=== PATIENT | male | born 1945 | race Caucasian/White ===

== ENCOUNTER 2020-01-05 20:45 | Inpatient (IN) ==
[2020-01-05] MEDS ORDERED: Naloxone 0.4 MG/ML INJ IVP PRN (22:56)
[2020-01-05] MEDS: 0.9 % Sodium Chloride 1,000 ML IVC SCH (23:16)
[2020-01-05] MEDS: Acetaminophen 325 MG TABLET PO PRN (23:53)
[2020-01-06] MEDS ORDERED: Ketorolac 15 MG/ML VIAL IVP PRN (01:28)
[2020-01-06 02:35] LABS: Hematocrit 36.5 % (37.5-50.1); Hemoglobin 11.9 g/dL (12.9-16.9); Immature Granulocytes % 0.4 % (0-4); Lymphocytes % 6.1 %; Mean Corpuscular HGB Conc 32.6 g/dL (31.6-35.5); Mean Corpuscular Hemoglobin 29.9 pg (28.0-33.3); Mean Corpuscular Volume 91.7 fL (83.0-100.0); Platelet Count 130 K/mcL (140-400); Red Blood Count 3.98 M/mcL (4.19-5.50); Red Cell Distribution Width 13.1 % (11.5-14.5); Segmented Neutrophils % 85.4 %; White Blood Count 9.7 K/mcL (4.3-11.1)
[2020-01-06 02:36] LABS: Basophils % 0.1 %; Lymphocytes # 0.6 K/mcL (0.6-4.6); Monocytes # 0.8 K/mcL (0.0-1.3); Neutrophils # 8.3 K/mcL (1.6-8.9)
[2020-01-06 02:44] LABS: INR 1.3; Prothrombin Time 14.7 Seconds (9.4-12.1)
[2020-01-06 02:47] LABS: Activated Partial Thrombo Time 28.5 Seconds (26.0-36.0)
[2020-01-06 02:57] LABS: Albumin 3.2 g/dL (3.5-5.7); Albumin/Globulin Ratio 1.6 (1.1-2.2); Bilirubin,Total 0.7 mg/dL (0.3-1.0); Calcium 8.1 mg/dL (8.6-10.3); Potassium 3.2 mEq/L (3.5-5.1); Total Protein 5.2 g/dL (6.4-8.9)
[2020-01-06] MEDS ORDERED: *HR* LORazepam 1 MG TABLET PO ONE (02:57)
[2020-01-06 03:09] LABS: Thyroid Stimulating Hormone 0.266 mcIU/mL (0.340-5.600)
[2020-01-06] MEDS: cefTRIAXone 1,000 MG in 0.9 % Sodium Chloride Mini Bag 100 ML IVPB SCH (08:20)
[2020-01-06] MEDS: atenoloL 50 MG TABLET PO SCH (08:22)
[2020-01-06] MEDS ORDERED: 0.9 % Sodium Chloride 500 ML ONE (09:26)
[2020-01-06] MEDS ORDERED: 0.9 % Sodium Chloride 250 ML ONE (09:28)
[2020-01-06] MEDS: Azithromycin 500 MG in 0.9 % Sodium Chloride 250 ML IVPB SCH (09:30)
[2020-01-06 09:49] LABS: Triiodothyronine (T3) Total 0.43 ng/mL (0.87-1.78)
[2020-01-06 10:58] LABS: Adenovirus Not Detected (Not Detect); Bordetella Pertussis Not Detected (Not Detect); Chlamydophila pneumoniae Not Detected (Not Detect); Coronavirus 229E Not Detected (Not Detect); Coronavirus HKU1 Not Detected (Not Detect); Coronavirus NL63 Not Detected (Not Detect); Coronavirus OC43 Not Detected (Not Detect); Human Metapneumovirus Not Detected (Not Detect); Human Rhinovirus/Enterovirus Not Detected (Not Detect); Influenza A Subtype 2009 H1 Not Detected (Not Detect); Influenza B Not Detected (Not Detect); Mycoplasma pneumoniae Not Detected (Not Detect); Parainfluenza Virus 1 Not Detected (Not Detect); Parainfluenza Virus 2 Not Detected (Not Detect); Parainfluenza Virus 3 Not Detected (Not Detect); Parainfluenza Virus 4 Not Detected (Not Detect); Respiratory Syncytial Virus Not Detected (Not Detect); SARS-CoV-2 Not Detected (Not Detect)
[2020-01-06] MEDS ORDERED: *HR* HYDROcodone/Acet 5/325 mg TABLET PO PRN (11:38)
[2020-01-06] MEDS: 0.9 % Sodium Chloride 1,000 ML IVC SCH (13:30)
[2020-01-06] MEDS: Vancomycin 1,250 MG/262.5 ML IV.SOLN IVPB SCH (14:37)
[2020-01-06] MEDS: Acetaminophen 325 MG TABLET PO PRN ×2 (16:01→23:08)
[2020-01-06] MEDS: *HR* Heparin 5,000 UNIT/ML VIAL SQ SCH (17:19)
[2020-01-06] MEDS: DYMISTA NS SCH (19:33)
[2020-01-07 01:53] LABS: BUN/Creatinine Ratio 20 (6-26); Blood Urea Nitrogen 22 mg/dL (8-23); Calcium 7.8 mg/dL (8.6-10.3); Carbon Dioxide 22 mEq/L (23-29); Chloride 105 mEq/L (98-107); Glucose 107 mg/dL (70-105); Magnesium 1.8 mg/dL (1.6-2.6); Osmolality,Calculated 280 (280-300); Phosphorous 2.1 mg/dL (2.7-4.5); Potassium 3.7 mEq/L (3.5-5.1); Sodium 133 mEq/L (136-145); eGFR For African Americans > 60 (> 60); eGFR For Non-African Americans > 60 (> 60)
[2020-01-07] MEDS: Vancomycin 1,250 MG/262.5 ML IV.SOLN IVPB SCH ×2 (02:33→16:23)
[2020-01-07] MEDS: 0.9 % Sodium Chloride 1,000 ML IVC SCH (02:33)
[2020-01-07] MEDS: *HR* Heparin 5,000 UNIT/ML VIAL SQ SCH ×2 (05:26→16:23)
[2020-01-07] MEDS ORDERED: Isovue-370 500 ML BOTTLE IVP ONE (08:58)
[2020-01-07] MEDS: atenoloL 50 MG TABLET PO SCH (10:13)
[2020-01-07] MEDS: cefTRIAXone 1,000 MG in 0.9 % Sodium Chloride Mini Bag 100 ML IVPB SCH (10:19)
[2020-01-07] MEDS: Azithromycin 500 MG in 0.9 % Sodium Chloride 250 ML IVPB SCH (14:23)
[2020-01-07] MEDS ORDERED: hydrOXYzine pamoate 25 MG CAPSULE PO ONE (14:53)
[2020-01-07] MEDS: DYMISTA NS SCH (20:27)
[2020-01-08] MEDS ORDERED: Benzonatate 100 MG CAPSULE PO PRN (00:12)
[2020-01-08] MEDS: Vancomycin 1,250 MG/262.5 ML IV.SOLN IVPB SCH (02:26)
[2020-01-08] MEDS: Acetaminophen 325 MG TABLET PO PRN (04:13)
[2020-01-08] MEDS: *HR* Heparin 5,000 UNIT/ML VIAL SQ SCH (04:14)
[2020-01-08] MEDS: cefTRIAXone 1,000 MG in 0.9 % Sodium Chloride Mini Bag 100 ML IVPB SCH (09:40)
[2020-01-08] MEDS: atenoloL 50 MG TABLET PO SCH (09:40)
[2020-01-08] MEDS: Azithromycin 500 MG in 0.9 % Sodium Chloride 250 ML IVPB SCH ×2 (09:41→10:28)
== END 2020-01-08 12:06 | disposition home health service (06) | DRG 194 ==
LOC: 3BNU → SUATTDRO 22:42
PROVIDERS: ADMIT Student in an Organized Health Care Education/Training Program; ATTEND Internal Medicine